=== PATIENT | male | born 1995 | race Caucasian/White ===

== ENCOUNTER 2024-03-24 21:16 | Observation (INO) ==
[2024-03-24] MEDS ORDERED: Albuterol HFA INHALER 8 gm MDI INH PRN (23:26)
[2024-03-25] MEDS: Lactated Ringers 1000 ml BAG 1,000 ML IV SCH ×2 (00:50→15:14)
[2024-03-25] MEDS: Morphine 2 MG/ML SYRINGE IV PRN (04:26)
[2024-03-25] MEDS: Ondansetron 4 mg VIAL 2 MG/ML 2 ml VIAL IV PRN (04:26)
[2024-03-25 07:32] LABS: ABS Basophils 0.1 10^3/uL (0.0-0.1); ABS Eosinophils 0.1 10^3/uL (0.0-0.5); ABS Lymphocytes 1.7 10^3/uL (1.0-4.8); ABS Monocytes 0.9 10^3/uL (0.0-1.1); ABS Neutrophils 8.3 10^3/uL (1.5-7.6); Eosinophil % 1.1 %; Hematocrit 39.5 % (38-53); Hemoglobin 13.3 g/dL (13.2-16.3); Mean Corpuscular Hemoglobin 29.6 pg (27-33); Mean Corpuscular Hgb Conc 33.8 g/dL (31-36); Mean Corpuscular Volume 87.8 fL (80-97); Mean Platelet Volume 7.3 fL (7.5-11.2); Platelet Count 362 10^3/uL (150-450); Red Blood Count 4.49 10^6/uL (4.06-5.63); Red Cell Distribution Width 13.9 % (12-17)
[2024-03-25 07:53] LABS: Creatinine, Serum 1.17 mg/dL (0.67-1.17); Magnesium 1.9 mg/dL (1.9-2.7); Potassium 4.4 mmol/L (3.5-5.0)
[2024-03-25] MEDS: Prochlorperazine 5 mg/ml 2 ml VIAL (10 mg) IV PRN (08:15)
[2024-03-25] MEDS ORDERED: fentaNYL 100 mcg/2 ml 50 MCG/ML VIAL ONE (09:20)
[2024-03-25] MEDS ORDERED: Midazolam 2 mg/2 ml VIAL 1 mg/ml 2 ml VIAL (2 mg) ONE (09:20)
[2024-03-25] MEDS ORDERED: Propofol 10 MG/ML 20 ML BTL ONE (09:21)
[2024-03-25] MEDS ORDERED: Ondansetron 4 mg VIAL 2 MG/ML 2 ml VIAL ONE (09:21)
[2024-03-25] MEDS ORDERED: Lidocaine 2% PF 5 ML VIAL ONE (09:21)
[2024-03-25] MEDS ORDERED: Dexamethasone IV 4 MG/ML VIAL 1 ml VIAL ONE (09:21)
[2024-03-25] MEDS ORDERED: Phenylephrine IV 10 MG/ML 1 ml VIAL ONE (09:21)
[2024-03-25] MEDS ORDERED: cefTRIAXone 1 gm/50 mL D5W 1 GM/50 ML BAG IV ONE (10:23)
[2024-03-25] MEDS ORDERED: Rocuronium 50 mg VIAL 10 mg/ml 5 ml VIAL (50 mg) ONE (10:24)
[2024-03-25] MEDS ORDERED: Iohexol 180 (CONTRAST) 10 ML SDV IV ONE (10:26)
[2024-03-25] MEDS ORDERED: Levalbuterol HFA INHALER MDI ONE (11:00)
[2024-03-25] MEDS ORDERED: Metoclopramide 5 MG/ML VIAL (10 mg) IV PRN (11:01)
[2024-03-25] MEDS ORDERED: Naloxone 0.4 mg VIAL 0.4 mg/ml 1 ml VIAL IV PRN (11:01)
[2024-03-25] MEDS ORDERED: Ondansetron 4 mg VIAL 2 MG/ML 2 ml VIAL IV PRN (11:01)
[2024-03-25] MEDS ORDERED: fentaNYL 100 mcg/2 ml 50 MCG/ML VIAL IV PRN (11:01)
[2024-03-25] MEDS ORDERED: NS 0.45% 1000 ml BAG 1,000 ML IV SCH (12:00)
[2024-03-25] MEDS: cefTRIAXone 1 gm/50 mL D5W 1 GM/50 ML BAG IV ONE (12:30)
[2024-03-25] MEDS: Acetaminophen IV 1 GM/100ML 1,000 MG/100 ML BAG IV ONE (13:08)
[2024-03-25] MEDS: Buffered Lidocaine 1% SYRIN 1 ml INTRADERM ONE (13:09)
[2024-03-25] MEDS: Scopolamine 1 mg/72hr PATCH TRANSDERM ONE (13:09)
[2024-03-26 06:34] VITALS: BP 115/69
[2024-03-26] MEDS: cefTRIAXone 1 gm/50 mL D5W 1 GM/50 ML BAG IV SCH (09:08)
== END 2024-03-26 10:21 | disposition home or self-care (01) ==
LOC: ED 21:16 → EDHOLD 21:16 → SUATTDRO 23:22 → SSU 23:24
PROVIDERS: ADMIT Internal Medicine; ATTEND Hospitalist

== ENCOUNTER 2024-04-14 17:28 | Inpatient (IN) ==
[2024-04-14 17:56] LABS: Hematocrit 41.1 % (38-53); Hemoglobin 13.9 g/dL (13.2-16.3); Mean Corpuscular Hemoglobin 29.5 pg (27-33); Mean Corpuscular Hgb Conc 33.8 g/dL (31-36); Mean Corpuscular Volume 87.1 fL (80-97); Mean Platelet Volume 6.8 fL (7.5-11.2); Platelet Count 414 10^3/uL (150-450); Red Blood Count 4.72 10^6/uL (4.06-5.63); White Blood Count 20.8 10^3/uL (3.6-10.2)
[2024-04-14 18:08] LABS: INR 1.25 (0.85-1.14)
[2024-04-14] MEDS: Lactated Ringers SEPSIS* BAG 1,910 ML IV ONE (18:21)
[2024-04-14] MEDS: Piperacillin/Tazobac 3.375 BAG 3.375 GM/100 ML BAG IV ONE (18:21)
[2024-04-14 18:25] LABS: Urine Appearance Turbid; Urine Bilirubin 2+ (Negative); Urine Blood 3+ (Negative); Urine Color Dark-Yellow; Urine Glucose Negative (Negative); Urine Ketones Negative (Negative); Urine Nitrite 2+ (Negative); Urine Protein 2+ (>=100 mg/dL) (Negative); Urine Specific Gravity 1.019 (1.002-1.030); Urine Urobilinogen 2+ (Negative); Urine pH 7.5 (5.0-8.0)
[2024-04-14 18:27] LABS: ABS Basophils 0.1 10^3/uL (0.0-0.1); ABS Eosinophils 0.2 10^3/uL (0.0-0.5); ABS Lymphocytes 1.1 10^3/uL (1.0-4.8); ABS Monocytes 2.7 10^3/uL (0.0-1.1); ABS Neutrophils 16.8 10^3/uL (1.5-7.6); Lymphocyte % 5.4 %
[2024-04-14 18:34] LABS: Albumin 4.3 g/dL (3.5-5.7); Albumin/Globulin Ratio 1.7 (1-3); C Reactive Protein 89.41 mg/L (<8.01); Calcium 9.5 mg/dL (8.6-10.3); Creatinine, Serum 0.98 mg/dL (0.67-1.17); Globulin 2.6 g/dL (2-4); Potassium 4.3 mmol/L (3.5-5.0); Total Bilirubin 0.8 mg/dL (0.2-1.0); Total Protein 6.9 g/dL (6.4-8.9); eGFR CKD-EPI 106.4 (>60)
[2024-04-14 18:36] LABS: Urine Bacteria 1+ /HPF (Absent); Urine Red Blood Cell 3+(>10/hpf) /HPF (0-Trace); Urine White Blood Cell 3+(>20/hpf) /HPF (0-Trace)
[2024-04-14 21:15] LABS: High Sensitivity Troponin 1 Hr 8 pg/mL (<20)
[2024-04-14] MEDS: Vancomycin 1,000 MG in NS 0.9% 250 ml 250 ML IVPB ONE (21:45)
[2024-04-14] MEDS ORDERED: Vancomycin per Pharmacy 1 EA NOTE FOLLOW UP SCH (22:00)
[2024-04-14] MEDS: Lactated Ringers 1000 ml BAG 1,000 ML IV SCH (23:26)
[2024-04-15] MEDS: Vancomycin 1,250 MG in NS 0.9% 250 ml 250 ML IVPB SCH ×2 (02:34→04:20)
[2024-04-15] MEDS ORDERED: Cefepime ADVAN 1 GM in NS 0.9% 50 ML 50 ML IVPB SCH (05:00)
[2024-04-15] MEDS: Cefepime 1 GM in Dextrose 1 GM/50 ML BAG IV SCH ×2 (06:18→18:39)
[2024-04-15 06:59] LABS: Hemoglobin 11.7 g/dL (13.2-16.3); Mean Corpuscular Hemoglobin 29.3 pg (27-33); Mean Corpuscular Hgb Conc 33.5 g/dL (31-36); Mean Corpuscular Volume 87.3 fL (80-97); Platelet Count 356 10^3/uL (150-450); Red Blood Count 4.01 10^6/uL (4.06-5.63); Red Cell Distribution Width 13.8 % (12-17); White Blood Count 36.1 10^3/uL (3.6-10.2)
[2024-04-15 07:11] LABS: Calcium 8.8 mg/dL (8.6-10.3); Creatinine, Serum 0.97 mg/dL (0.67-1.17); Potassium 3.8 mmol/L (3.5-5.0); eGFR CKD-EPI 107.7 (>60)
[2024-04-15 08:01] LABS: ABS Basophils 0.3 10^3/uL (0.0-0.1); ABS Eosinophils 0.1 10^3/uL (0.0-0.5); ABS Lymphocytes 1.4 10^3/uL (1.0-4.8); ABS Monocytes 4.8 10^3/uL (0.0-1.1); ABS Neutrophils 29.5 10^3/uL (1.5-7.6); Eosinophil % 0.3 %; Lymphocyte % 3.8 %; RBC Morphology Normal (Normal)
[2024-04-15] MEDS: Potassium Chlor 20 meq TAB.ER PO ONE (18:39)
[2024-04-16 06:31] LABS: Creatinine, Serum 0.88 mg/dL (0.67-1.17); Potassium 4.2 mmol/L (3.5-5.0); eGFR CKD-EPI 118.6 (>60)
[2024-04-16 06:43] LABS: Hematocrit 34.4 % (38-53); Hemoglobin 11.5 g/dL (13.2-16.3); Mean Corpuscular Hemoglobin 29.5 pg (27-33); Mean Corpuscular Hgb Conc 33.3 g/dL (31-36); Mean Corpuscular Volume 88.7 fL (80-97); Platelet Count 310 10^3/uL (150-450); Red Blood Count 3.88 10^6/uL (4.06-5.63); White Blood Count 25.1 10^3/uL (3.6-10.2)
[2024-04-16 06:46] LABS: ABS Eosinophils 0.1 10^3/uL (0.0-0.5); ABS Monocytes 3.1 10^3/uL (0.0-1.1); ABS Neutrophils 19.9 10^3/uL (1.5-7.6); Eosinophil % 0.3 %; Lymphocyte % 7.8 %
[2024-04-16] MEDS: Vancomycin Trough Check NOTE FOLLOW UP ONE (10:25)
[2024-04-16 13:56] VITALS: BP 135/97
== END 2024-04-16 15:05 | disposition home or self-care (01) | DRG 720 ==
LOC: ED 17:28 → SUATTDRO 21:00 → EDHOLD 21:00 → MED 23:24
PROVIDERS: ADMIT Internal Medicine; ATTEND Student in an Organized Health Care Education/Training Program